=== PATIENT | male | born 1950 | race Caucasian/White ===

== ENCOUNTER 2020-05-14 10:16 | Emergency (ER) | payer MEDICARE, BC ==
[~2020-05-14] VITALS: Ht 170.2 cm; Wt 80.0 kg
[~2020-05-14 10:16] MED LIST: AND5P TOP; ASPI-1265 PO; CELE-193 PO; CHOL200035 PO; IRBE1TAB31 PO; PSYL0.524 PO; SIMV80TA2 PO; ZET10T PO
[2020-05-14] MEDS ORDERED: diltiazem-D5W 125mg/125ml 125 ML IV ONE (10:23)
[2020-05-14] MEDS ORDERED: diltiazem 5mg/ml 5ml inj. IV ONE (10:25)
[2020-05-14] MEDS ORDERED: aspirin 81mg tab.chew PO ONE (10:25)
[2020-05-14 10:42] LABS: BASOPHILS # (AUTO) 0.1 X10'3 (0-0.2); BASOPHILS % (AUTO) 1.2 % (0-1); EOSINOPHILS # (AUTO) 0.1 X10'3 (0-0.9); HEMATOCRIT 45.8 % (42.0-52.0); HEMOGLOBIN 15.7 g/dl (14.0-17.9); LYMPHOCYTES # (AUTO) 1.2 X10'3 (1.1-4.8); LYMPHOCYTES % (AUTO) 16.7 % (21-51); MEAN CORPUSCULAR HEMOGLOBIN 34.5 PG (27.0-31.0); MEAN CORPUSCULAR HGB CONC 34.2 g/dL (33.0-36.5); MEAN CORPUSCULAR VOLUME 100.9 FL (78-98); MEAN PLATELET VOLUME 7.7 FL (7.4-10.4); MONOCYTES # (AUTO) 0.5 X10'3 (0-0.9); MONOCYTES % (AUTO) 7.5 % (2-12); NEUTROPHILS # (AUTO) 5.2 X10'3 (1.8-7.7); NEUTROPHILS % (AUTO) 72.6 % (42-75); PLATELET COUNT 175 X10'3 (140-440); RED BLOOD COUNT 4.55 X10'6 (4.70-6.10); RED CELL DISTRIBUTION WIDTH 14.5 % (11.5-14.5); WHITE BLOOD COUNT 7.1 X10'3 (4.5-11.0)
[2020-05-14] MEDS: diltiazem-NS 100mg/100ml 100 ML IV ONE ×2 (10:49→11:00)
[2020-05-14 10:55] LABS: ALANINE AMINOTRANSFERASE 37 U/L (12-78); ALBUMIN 4.3 G/DL (3.4-5.0); ALBUMIN/GLOBULIN RATIO 1.3 (1.1-1.5); ALKALINE PHOSPHATASE 60 IU/L (46-116); ANION GAP 11 (8-16); ASPARTATE AMINO TRANSFERASE 26 U/L (10-37); BILIRUBIN,TOTAL 1.5 MG/DL (0.1-1.0); BLOOD UREA NITROGEN 15 MG/DL (7-18); BUN/CREATININE RATIO 14.4 (5.4-32.0); CALCIUM 9.5 MG/DL (8.5-10.1); CHLORIDE 98 MMOL/L (99-107); CREATININE 1.04 MG/DL (0.60-1.10); GLUCOSE 92 MG/DL (70-104); POTASSIUM 3.8 MMOL/L (3.5-5.1); SODIUM 135 MMOL/L (135-145); TOTAL CARBON DIOXIDE 26.3 MMOL/L (24-32); TOTAL PROTEIN 7.7 G/DL (6.4-8.2); eGFR 71 ML/MIN
--- NOTE | 2020-05-14 10:58 | NUR ---
Dr Schroeder at bedside, did not start drip, CX order per
[2020-05-14 11:00] VITALS: BP 145/104
[2020-05-14 11:03] LABS: MAGNESIUM 1.6 MG/DL (1.5-2.4)
[2020-05-14] MEDS ORDERED: apixaban 5mg tablet PO STA (11:19)
[2020-05-14] MEDS ORDERED: sotalol 80mg tablet PO STA (11:19)
[2020-05-14] MEDS ORDERED: SOTA80TA46 PO (11:31)
[2020-05-14] MEDS ORDERED: APIX5TAB3 PO (11:31)
== END 2020-05-14 12:37 | disposition home or self-care (01) ==
LOC: ER 10:17
DX: I48.92 Unspecified atrial flutter (principal); E78.00 Pure hypercholesterolemia, unspecified; I10 Essential (primary) hypertension; Z88.0 Allergy status to penicillin; Z88.8 Allergy status to other drugs, medicaments and biological substances; Z79.01 Long term (current) use of anticoagulants; Z79.82 Long term (current) use of aspirin; Z79.899 Other long term (current) drug therapy
CPT/HCPCS: 36415; 71045; 80053; 83735; 83880; 84484; 85025; 93005; 96374; 99285; J3490

== ENCOUNTER 2020-06-05 07:20 | Day surgery (SDC) | payer MEDICARE, BC ==
[~2020-06-05] VITALS: Ht 170.2 cm; Wt 75.5 kg
[2020-06-05] VITALS (13 sets, daily range): BP systolic 101–169; BP diastolic 65–91
[~2020-06-05 07:20] MED LIST changes: +APIX5TAB3 PO; +SOTA80TA46 PO
[2020-06-05 07:52] LABS: BASOPHILS # (AUTO) 0.1 X10'3 (0-0.2); BASOPHILS % (AUTO) 1.1 % (0-1); EOSINOPHILS # (AUTO) 0.3 X10'3 (0-0.9); EOSINOPHILS % (AUTO) 4.7 % (0-6); HEMATOCRIT 47.5 % (42.0-52.0); HEMOGLOBIN 16.3 g/dl (14.0-17.9); LYMPHOCYTES # (AUTO) 1.5 X10'3 (1.1-4.8); LYMPHOCYTES % (AUTO) 22.6 % (21-51); MEAN CORPUSCULAR HEMOGLOBIN 34.4 PG (27.0-31.0); MEAN CORPUSCULAR HGB CONC 34.4 g/dL (33.0-36.5); MEAN CORPUSCULAR VOLUME 100.1 FL (78-98); MEAN PLATELET VOLUME 8.4 FL (7.4-10.4); MONOCYTES # (AUTO) 0.6 X10'3 (0-0.9); MONOCYTES % (AUTO) 9.4 % (2-12); NEUTROPHILS # (AUTO) 4.1 X10'3 (1.8-7.7); NEUTROPHILS % (AUTO) 62.2 % (42-75); PLATELET COUNT 184 X10'3 (140-440); RED BLOOD COUNT 4.75 X10'6 (4.70-6.10); RED CELL DISTRIBUTION WIDTH 13.6 % (11.5-14.5); WHITE BLOOD COUNT 6.5 X10'3 (4.5-11.0)
[2020-06-05] MEDS ORDERED: atropine 0.1mg/ml 10ml syringe IV ONE (08:10)
[2020-06-05] MEDS ORDERED: LORazepam 0.5 MG tablet PO ONE (08:10)
[2020-06-05] MEDS ORDERED: MIDAZolam 1mg/ml 10ml vial IV ONE (08:10)
[2020-06-05] MEDS ORDERED: amiodarone 150mg/dext, iso-os 100 ML IV ONE (08:10)
[2020-06-05] MEDS ORDERED: morphine 10mg/ml inj. IV ONE (08:10)
[2020-06-05] MEDS ORDERED: diphenhydrAMINE 25mg capsule PO ONE (08:10)
[2020-06-05 08:16] LABS: ALANINE AMINOTRANSFERASE 36 U/L (12-78); ALBUMIN/GLOBULIN RATIO 1.3 (1.1-1.5); ALKALINE PHOSPHATASE 64 IU/L (46-116); ANION GAP 6 (8-16); ASPARTATE AMINO TRANSFERASE 17 U/L (10-37); BILIRUBIN,TOTAL 1.7 MG/DL (0.1-1.0); BLOOD UREA NITROGEN 15 MG/DL (7-18); BUN/CREATININE RATIO 12.5 (5.4-32.0); CALCIUM 9.5 MG/DL (8.5-10.1); CHLORIDE 103 MMOL/L (99-107); GLUCOSE 95 MG/DL (70-104); POTASSIUM 3.9 MMOL/L (3.5-5.1); SODIUM 138 MMOL/L (135-145); TOTAL CARBON DIOXIDE 29.1 MMOL/L (24-32); TOTAL PROTEIN 7.1 G/DL (6.4-8.2); eGFR 60 ML/MIN
[2020-06-05] MEDS ORDERED: HYDR25TA4 PO (08:31)
[2020-06-05] MEDS ORDERED: IRBE150T51 PO (08:31)
[2020-06-05] MEDS ORDERED: SIMV80TA2 PO (08:33)
[2020-06-05] MEDS ORDERED: TADA20TA PO (08:33)
[2020-06-05] MEDS ORDERED: APIX5TAB3 PO (08:34)
[2020-06-05] MEDS ORDERED: SOTA80TA46 PO (08:36)
[2020-06-05] MEDS ORDERED: normal saline 1000ml 1,000 ML IV SCH (09:40)
== END 2020-06-05 12:00 | disposition home or self-care (01) ==
LOC: SSTAY O 07:20
PROVIDERS: ATTEND Internal Medicine Cardiovascular Disease
DX: I48.92 Unspecified atrial flutter (principal); I10 Essential (primary) hypertension; M54.30 Sciatica, unspecified side; E78.49 Other hyperlipidemia; Z79.899 Other long term (current) drug therapy; Z98.890 Other specified postprocedural states; Z79.82 Long term (current) use of aspirin; Z86.73 Personal history of transient ischemic attack (TIA), and cerebral infarction without residual deficits; Z72.89 Other problems related to lifestyle; Z82.49 Family history of ischemic heart disease and other diseases of the circulatory system
CPT/HCPCS: 36415; 80053; 84443; 85025; 92960; 93005; 94760; J2250; J2270

== ENCOUNTER 2024-12-27 06:59 | Day surgery (SDC) | payer MEDICARE, BC ==
[2024-12-26 11:46] LABS: BASOPHILS # (AUTO) 0.1 X10'3 (0-0.2); BASOPHILS % (AUTO) 0.9 % (0-1); EOSINOPHILS # (AUTO) 0.1 X10'3 (0-0.9); EOSINOPHILS % (AUTO) 1.5 % (0-6); HEMOGLOBIN 15.9 g/dl (14.0-17.9); LYMPHOCYTES # (AUTO) 0.9 X10'3 (1.1-4.8); LYMPHOCYTES % (AUTO) 13.5 % (21-51); MEAN CORPUSCULAR HEMOGLOBIN 35.7 PG (27.0-31.0); MEAN CORPUSCULAR HGB CONC 34.5 g/dL (33.0-36.5); MEAN CORPUSCULAR VOLUME 103.2 FL (78-98); MEAN PLATELET VOLUME 8.1 FL (7.4-10.4); MONOCYTES # (AUTO) 0.6 X10'3 (0-0.9); NEUTROPHILS % (AUTO) 75.1 % (42-75); PLATELET COUNT 156 X10'3 (140-440); RED BLOOD COUNT 4.46 X10'6 (4.70-6.10); RED CELL DISTRIBUTION WIDTH 14.6 % (11.5-14.5); WHITE BLOOD COUNT 6.6 X10'3 (4.5-11.0)
[2024-12-26 12:02] LABS: ALBUMIN 3.5 G/DL (3.4-5.0); ANION GAP 4 (8-16); BLOOD UREA NITROGEN 11 MG/DL (7-18); BUN/CREATININE RATIO 11.5 (10.0-20.0); CALCIUM 9.4 MG/DL (8.5-10.1); CHLORIDE 101 MMOL/L (99-107); CREATININE 0.96 MG/DL (0.60-1.10); GLUCOSE 98 MG/DL (70-104); POTASSIUM 3.9 MMOL/L (3.5-5.1); SODIUM 138 MMOL/L (135-145); TOTAL CARBON DIOXIDE 32.8 MMOL/L (24-32); eGFR 77 ML/MIN
[2024-12-26 12:06] LABS: INR 1.1 INR; PROTHROMBIN TIME 10.9 SECONDS (9.0-12.0)
[~2024-12-27] VITALS: Ht 170.2 cm; Wt 77.1 kg
[~2024-12-27 06:59] MED LIST changes: +HYDR25TA4 PO; +IRBE150T51 PO; -IRBE1TAB31 PO; -PSYL0.524 PO; +TADA20TA PO; -ZET10T PO
[2024-12-27] MEDS ORDERED: morphine 10mg/ml inj. IV ONE (07:15)
[2024-12-27] MEDS ORDERED: MIDAZolam 1mg/ml 10ml vial IV ONE (07:15)
[2024-12-27] MEDS ORDERED: atropine 0.1mg/ml 10ml syringe IV ONE (07:15)
[2024-12-27] MEDS ORDERED: amiodarone 150mg/dext, iso-os 100 ML IV ONE (07:15)
[2024-12-27] MEDS ORDERED: normal saline 1000ml 1,000 ML IV SCH (07:15)
[2024-12-27] MEDS ORDERED: LORazepam 0.5 MG tablet PO ONE (07:15)
[2024-12-27] MEDS ORDERED: diphenhydrAMINE 25mg capsule PO ONE (07:15)
[2024-12-27] MEDS ORDERED: TUMERIC EXTRACT (07:34)
[2024-12-27] MEDS ORDERED: FAMO-280 PO (07:34)
[2024-12-27] MEDS ORDERED: glucosamine (07:34)
[2024-12-27 08:00] VITALS: BP 167/88; PULSE 75; RESP 15; TEMP 97.3; O2SAT 98
== END 2024-12-27 09:00 | disposition home or self-care (01) ==
LOC: SSTAY O 06:59
PROVIDERS: ATTEND Internal Medicine Cardiovascular Disease
DX: I48.0 Paroxysmal atrial fibrillation (principal); Z53.8 Procedure and treatment not carried out for other reasons; I10 Essential (primary) hypertension; E78.5 Hyperlipidemia, unspecified; I34.0 Nonrheumatic mitral (valve) insufficiency; Z88.0 Allergy status to penicillin; Z88.8 Allergy status to other drugs, medicaments and biological substances; Z98.890 Other specified postprocedural states; Z79.899 Other long term (current) drug therapy; I48.92 Unspecified atrial flutter; R94.31 Abnormal electrocardiogram [ECG] [EKG]
CPT/HCPCS: 36415; 80048; 85025; 85610; 93005; J7030; Z7610